=== PATIENT | female | born 1975 | race Caucasian/White ===

== ENCOUNTER → 2018-03-08 | Day surgery (SDC) | payer BC ==
[~2018-03-08] MED LIST: Bupivacaine/Epinephrine 0.25% 30 ML VIAL ONE; Dexamethasone 20 MG/5 ML VIAL ONE; Fentanyl 100 MCG/2 ML VIAL ONE; HYDROcodone/Acetaminophen 5/325 mg Tablet ONE; Ketorolac Tromethamine 30 MG/ML VIAL ONE; Lidocaine 1% PF 5 ML VIAL ONE; Midazolam HCl 2 mg/2 ml Vial ONE; Ondansetron HCl/PF 4 MG/2 ML Vial ONE; PROPOFOL 200 MG/20 ML VIAL ONE; Piperacillin/Tazobactam 3.375 GM VIAL ONE; Sodium Chloride 0.9% 20 ML ONE; Succinylcholine Chloride 20 MG/ML 10 ml SYRINGE FS ONE
--- NOTE | 2018-03-08 21:50 | PDOC.OP ---
Operative Note - Operative Note Operative Note: PROCEDURE: Laparoscopic appendectomy SURGEON: Randal Serrano M.D. DATE OF PROCEDURE: 03/08/2018 PREOPERATIVE DIAGNOSIS: Appendicitis POSTOPERATIVE DIAGNOSIS: Appendicitis HISTORY: Patient with a one day history of right-sided abdominal pain and CT evidence of appendicitis. Laparoscopic appendectomy was recommended. FINDINGS: Acutely inflamed appendix with some fibrinous exudate but no evidence of perforation or abscess formation. Base was normal. DESCRIPTION OF PROCEDURE: After informed consent was obtained and appropriate antibiotics continued, the patient was taken to the operating room and placed in the supine position and general endotracheal anesthesia was administered. The bladder was decompressed with a Bazan catheter and the abdomen was prepped and draped in the standard sterile fashion. Local anesthesia was infused to the skin and subcutaneous tissues superior to the umbilicus. A transverse skin incision was made and a Veress needle placed into the abdominal cavity and carbon dioxide gas insufflated without difficulty. Opening pressure was less than 5 initially but rapidly gabriel to 15. A second attempt was made with the same result. It was felt the gas was being insufflated into the preperitoneal tissues. The umbilical incision was extended and dissection carried down to the fascia which was incised under direct vision with release of gas from the preperitoneal tissues. The peritoneum was elevated and opened and a 12 mm trocar placed into the abdominal cavity. Carbon dioxide gas was insufflated to an intra-abdominal pressure 15 and the patient tolerated this well. There was no evidence of Veress needle or trocar injury. Two additional ports were placed in the suprapubic and left lateral abdomen under direct laparoscopic vision after local anesthesia was infused at these sites. The appendix was identified and appeared inflamed but not perforated. This was retrocecal in location but a plane was able to be identified by blunt dissection and the appendix was able to be elevated out of the retrocecal location. The appendix was grasped by the mesoappendix and elevated. The mesoappendix was then sequentially ligated and divided down to the base of the appendix, which was normal in appearance and was clearly seen to be at the confluence of the tenia. Two Endoloops were placed around the base of the appendix and the appendix was divided between these Endoloops, placed into an EndoCatch bag and drawn out through the umbilical incision. The umbilical trocar was then replaced and the operative site was easily irrigated to clear. The left lateral and suprapubic trocars were then removed and hemostasis verified. Carbon dioxide gas was desufflated through the umbilical trocar which was then removed. The fascia was closed under direct vision with a 0 Vicryl suture on a UR 6 needle with excellent technical result. The skin incisions were irrigated and additional local anesthesia infused at each site. The skin was closed with 4-0 subcuticular Monocryl sutures and Dermabond dressings were placed. The patient was extubated and taken to the recovery room in good condition. Estimated blood loss was minimal. There were no complications. SPECIMEN: Appendix.
--- NOTE | 2018-03-09 00:20 | HP ---
CHIEF COMPLAINT: Abdominal pain. HISTORY OF PRESENT ILLNESS: Ms. Tam is a 42-year-old woman with right lower quadrant pain since yesterday evening. She states that she had some mild nausea, but no vomiting and her appetite has b een normal. She denies any fevers or chills. The pain was much worse when she tried to move around and was tolerable when she held still. She did not have any diarrhea and the pain did not radiate. She came to the emergency room and a CT scan was diagnostic of acute appendicitis, and she was transf erred to [facility] for further care. PAST MEDICAL HISTORY: None. PAST SURGICAL HISTORY: None. FAMILY HISTORY: Pancreatic cancer. ALLERGIES: No known drug allergies. SOCIAL HISTORY: She does not smoke, drink, or use illicit drugs. She works as an stacker driver. REVIEW OF SYSTEMS: Ten system review of systems is negative except per HPI. She is generally in [facility]. PHYSICAL EXAMINATION: VITAL SIGNS: The patient was afebrile with normal vital signs. GENERAL: Reveals a healthy-appearing woman in no acute distress. HEENT: Unremarkable. NECK: Supple, without lymphadenopathy or thyroid nodules. HEART: Regular rate and rhythm without murmurs, rubs, or gallops. LUNGS: Clear to auscultation bilaterally without any wheezing. ABDOMEN: Soft and nondistended. She is tender to palpation in the right lower quadrant greater than left lower quadrant and right upper quadrant. She does have rebound tenderness, which is referred t o the right lower quadrant with release of pressure in the left lower quadrant. She does not exhibit rigidity or guarding, however. She does not have any palpable hernias or masses. EXTREMITIES: Warm and well perfused without edema. NEUROLOGIC: No focal deficits. PSYCHIATRIC: Alert, oriented, and appropriate. LABORATORY DATA: White count was mildly elevated, but electrolytes, LFTs, and other labs were normal . test was negative. Written report from the radiologist is reviewed and no abnormal find ings except for an acutely inflamed appendix are noted. ASSESSMENT: Acute appendicitis. RECOMMENDATIONS: Laparoscopic appendectomy. Patient's diagnosis and recommended treatment were disc ussed in detail with her and her family. Inherent risks of surgery were also discussed. These inclu de but are not limited to bleeding, infection, risks of anesthesia, damage to nearby structures inclu ding bowel and blood vessels, need for other procedures, need for open surgery. She understands and accepts these risks and wishes to proceed. She received Zosyn prior to transfer. All of her questio ns were answered.
== END ==
LOC: SDC 14:25
PROVIDERS: ATTEND Surgery
PROC: 0DTJ4ZZ Resection of Appendix, Percutaneous Endoscopic Approach (ICD-10-PCS; principal; 2018-03-08)
DX: K35.80 Unspecified acute appendicitis (principal)
CPT/HCPCS: 88304; A4216; J1100; J1885; J2001; J2250; J2405; J2543; J2704; J3010

== ENCOUNTER 2018-03-23 15:32 | Outpatient (CLI) | payer BC | END 2018-03-23 15:33 | disposition home or self-care (01) | LOC: BICMAMMO 15:32 | PROVIDERS: ATTEND Obstetrics & Gynecology | DX: Z12.31 Encounter for screening mammogram for malignant neoplasm of breast (principal) | CPT/HCPCS: 77063; 77067 ==

== ENCOUNTER 2019-02-10 12:55 | Outpatient (CLI) | payer OTHER ==
--- NOTE | 2019-02-10 13:16 | RAD ---
Cervical spine 3 views: 02/10/2019 COMPARISON: None HISTORY: Cervical radiculopathy FINDINGS: Open-mouth odontoid view demonstrates normal appearing dens and C1-2 articulation. There is mild bilateral uncovertebral osteophyte formation at C5-6. Lateral imaging demonstrates stra ightening of the normal cervical lordosis. There is mild disc space narrowing at C4-5 and C5-6. There is mild anterior osteophyte formation at C5-6 and C6-7. No acute osseous abnormality. IMPRESSION: Degenerative change as detailed above. No acute findings. If there are radicular symptoms , MRI suggested.
--- NOTE | 2019-02-10 13:46 | MRI ---
MRI CERVICAL SPINE WITHOUT CONTRAST: 02/10/2019 HISTORY: Left upper extremity radiculopathy, neck pain, cervical radiculopathy. COMPARISON: None. TECHNIQUE: Multiplanar, multisequence MR imaging of the cervical spine provided without contrast media. FINDINGS: No focal area of osseous marrow edema noted on the sagittal STIR imaging. Evaluation is slightly boyd ited secondary to motion at the C4 through C7 levels. There is no anterolisthesis or retrolisthesis. No prevertebral soft tissue swelling. C2-3: No significant central canal or neural foraminal stenosis. C3-4: No significant central canal or neural foraminal stenosis C4-5: Minimal disc bulge. Mild disc space narrowing. Right paracentral annular tear with a tiny as sociated disc protrusion. Mild bilateral facet hypertrophy. No significant neural foraminal stenosis. Mild right paracentral central canal stenosis. C5-6: There is disc space narrowing and disc desiccation with mild disc bulge partially effacing the ventral thecal sac and causing a mild degree of central canal stenosis. Bilateral facet and uncovertebral osteophyte formation, left greater than right, with mild bilateral neural foraminal em nosis, left greater than right. C6-7: Disc space narrowing and disc desiccation. There is disc bulge with a left paracentral/left f oraminal annular tear with an associated disc herniation effacing the ventral thecal sac and leading to mild central canal stenosis laterally on the left. There is disc material extending into the left neural foramen with moderate associated left neural foraminal stenosis. No significant right neural foraminal stenosis. C7-T1: No significant central canal or neural foraminal stenosis. No focal area of abnormal signal intensity identified within the cervical cord. IMPRESSION: Multilevel cervical spine degenerative change, as detailed above, most significant finding being a di sc herniation in the left paracentral/left foraminal region at C6-7, with significant left neural foraminal stenosis and mass effect on the exiting nerve root. Transcribed Date/Time: 02/10/2019 1:57 PM
== END 2019-02-10 12:56 | disposition home or self-care (01) ==
LOC: TBSIIMAG 12:55
PROVIDERS: ATTEND Neurological Surgery
DX: M47.22 Other spondylosis with radiculopathy, cervical region (principal); M48.02 Spinal stenosis, cervical region; M50.123 Cervical disc disorder at C6-C7 level with radiculopathy
CPT/HCPCS: 72040; 72141

== ENCOUNTER 2023-06-09 18:00 | Outpatient (CLI) | payer BC | END 2023-06-09 18:01 | disposition home or self-care (01) | LOC: SLEEPLAB 18:00 | PROVIDERS: ATTEND Family Medicine | DX: G47.33 Obstructive sleep apnea (adult) (pediatric) (principal); E66.9 Obesity, unspecified; I10 Essential (primary) hypertension; R53.83 Other fatigue | CPT/HCPCS: 95800 ==

== ENCOUNTER 2023-08-10 17:00 | Outpatient (CLI) | payer BC | END 2023-08-10 17:01 | disposition home or self-care (01) | LOC: SLEEPLAB 17:00 | PROVIDERS: ATTEND Family Medicine | DX: G47.33 Obstructive sleep apnea (adult) (pediatric) (principal); G47.10 Hypersomnia, unspecified; E66.9 Obesity, unspecified; R06.83 Snoring; Z68.41 Body mass index [BMI] 40.0-44.9, adult | CPT/HCPCS: 95811 ==